=== PATIENT | male | born 1950 | race Caucasian/White ===

== ENCOUNTER 2022-07-02 07:14 | Inpatient (IN) | payer MEDICARE, OTHER ==
[~2022-07-02] VITALS: Ht 175.3 cm; Wt 79.1 kg
[2022-07-02 07:42] LABS: BASOPHILS % (AUTO) 0.7 % (0-1); EOSINOPHILS # (AUTO) 0.1 X10'3 (0-0.9); EOSINOPHILS % (AUTO) 2.3 % (0-6); HEMATOCRIT 44.2 % (42.0-52.0); HEMOGLOBIN 15.2 g/dl (14.0-17.9); LYMPHOCYTES # (AUTO) 1.5 X10'3 (1.1-4.8); LYMPHOCYTES % (AUTO) 24.4 % (21-51); MEAN CORPUSCULAR HEMOGLOBIN 32.7 PG (27.0-31.0); MEAN CORPUSCULAR HGB CONC 34.3 g/dL (33.0-36.5); MEAN CORPUSCULAR VOLUME 95.4 FL (78-98); MEAN PLATELET VOLUME 7.9 FL (7.4-10.4); MONOCYTES # (AUTO) 0.5 X10'3 (0-0.9); MONOCYTES % (AUTO) 8.2 % (2-12); NEUTROPHILS # (AUTO) 4.1 X10'3 (1.8-7.7); NEUTROPHILS % (AUTO) 64.4 % (42-75); PLATELET COUNT 284 X10'3 (140-440); RED BLOOD COUNT 4.63 X10'6 (4.70-6.10); RED CELL DISTRIBUTION WIDTH 13.9 % (11.5-14.5); WHITE BLOOD COUNT 6.4 X10'3 (4.5-11.0)
[2022-07-02 08:09] LABS: ALANINE AMINOTRANSFERASE 59 U/L (12-78); ALBUMIN 3.8 G/DL (3.4-5.0); ALBUMIN/GLOBULIN RATIO 1.3 (1.1-1.5); ALKALINE PHOSPHATASE 64 IU/L (46-116); ANION GAP 7 (8-16); ASPARTATE AMINO TRANSFERASE 32 U/L (10-37); BILIRUBIN,TOTAL 0.4 MG/DL (0.1-1.0); BLOOD UREA NITROGEN 18 MG/DL (7-18); BUN/CREATININE RATIO 16.7 (10.0-20.0); CALCIUM 9.4 MG/DL (8.5-10.1); CHLORIDE 102 MMOL/L (99-107); CREATININE 1.08 MG/DL (0.60-1.10); GLUCOSE 100 MG/DL (70-104); POTASSIUM 4.2 MMOL/L (3.5-5.1); SODIUM 137 MMOL/L (135-145); TOTAL CARBON DIOXIDE 27.9 MMOL/L (24-32); TOTAL PROTEIN 6.8 G/DL (6.4-8.2); eGFR 67 ML/MIN
[2022-07-02] MEDS ORDERED: metoprolol tartrate 25mg tablet PO ONE (08:45)
[2022-07-02] MEDS ORDERED: aspirin 81mg tab.chew PO ONE (08:45)
[2022-07-02] MEDS ORDERED: LISI40TA13 PO ×2 (08:57→12:58)
[2022-07-02] MEDS ORDERED: SYN0.088T PO (08:57)
[2022-07-02] MEDS ORDERED: TADA5TAB2 PO ×2 (08:59→12:58)
[2022-07-02] MEDS ORDERED: PROP1TAB PO (09:01)
[2022-07-02] MEDS ORDERED: PERFLUTREN PROTEIN-A MICROSPHR (Optison) 0.22 MG/ML 3ML VIAL IV ONE (10:10)
[2022-07-02] MEDS ORDERED: acetaminophen 325mg tablet PO PRN (10:10)
[2022-07-02] MEDS ORDERED: mag hydrox/Alum hydrox/simeth 30ml oral suspension PO PRN (10:10)
[2022-07-02] MEDS ORDERED: potassium Cl 20 mEq SR tablet PO PRN ×2 (10:10)
[2022-07-02] MEDS ORDERED: potassium Cl 40MEQ/1/2NS 520ml 520 ML IV PRN (10:10)
[2022-07-02] MEDS ORDERED: magnesium hydroxide 30ml (MOM) UD suspension PO PRN (10:10)
[2022-07-02] MEDS ORDERED: magnesium 4gm in 100ml NS 100 ML IV PRN (10:10)
[2022-07-02] MEDS ORDERED: ondansetron/PF 4mg/2ml inj IV PRN (10:10)
[2022-07-02] MEDS ORDERED: TADA20TA PO (12:58)
[2022-07-02] MEDS ORDERED: INDLA60C PO (12:58)
[2022-07-02] MEDS ORDERED: PROP120C2 PO (12:58)
[2022-07-02] MEDS ORDERED: LEVO88TA7 PO (12:58)
[2022-07-02] MEDS ORDERED: ATOR40TA PO (15:29)
[2022-07-02] MEDS ORDERED: NITR0.4T51 SL (15:29)
[2022-07-02 15:41] LABS: CHOL/HDL RATIO 2.5 (0.00-4.99); CHOLESTEROL 238 MG/DL (0-200); HDL CHOLESTEROL 96 MG/DL (35-60); LDL CHOLESTEROL 117 MG/DL (50-100); TRIGLYCERIDES 34 MG/DL (20-135)
[2022-07-02 15:48] VITALS: BP 179/93
[2022-07-02] MEDS ORDERED: enoxaparin 40mg/0.4ml syringe SQ SCH (20:00)
[2022-07-02] MEDS ORDERED: K and/or MAG REPLACEMENT MC SCH (20:00)
[2022-07-02] MEDS ORDERED: docusate sod 100mg capsule PO SCH (20:00)
[2022-07-02] MEDS ORDERED: propranolol LA 60 MG cap.SA.24H PO SCH ×2 (21:00)
[2022-07-03] MEDS ORDERED: lisinopril 20mg tablet PO SCH (08:00)
[2022-07-03] MEDS ORDERED: levoTHYROXINE 88mcg tablet PO SCH (08:00)
[2022-07-03] MEDS ORDERED: PERFLUTREN PROTEIN-A MICROSPHR (Optison) 0.22 MG/ML 3ML VIAL IV ONE (09:00)
== END 2022-07-02 15:48 | disposition home or self-care (01) | DRG 311 ==
LOC: ER 07:16 → ED HOLD 10:19
PROVIDERS: ADMIT Family Medicine; ATTEND Family Medicine
DX: I20.8 Other forms of angina pectoris (principal); I50.21 Acute systolic (congestive) heart failure; E78.00 Pure hypercholesterolemia, unspecified; I11.0 Hypertensive heart disease with heart failure; E03.9 Hypothyroidism, unspecified; G47.00 Insomnia, unspecified; M79.602 Pain in left arm; Z80.1 Family history of malignant neoplasm of trachea, bronchus and lung; Z80.8 Family history of malignant neoplasm of other organs or systems; Z82.49 Family history of ischemic heart disease and other diseases of the circulatory system; Z88.0 Allergy status to penicillin; Z88.1 Allergy status to other antibiotic agents; Z79.899 Other long term (current) drug therapy
CPT/HCPCS: 36415; 71045; 80053; 80061; 83735; 83880; 84484; 85025; 93005; 99285; G0378